=== PATIENT | female | born 1995 | race Hispanic/Latino ===

== ENCOUNTER → 2018-11-17 | Emergency (ER) | payer SELFPAY | LOC: BURERS 23:37 | DX: R11.2 Nausea with vomiting, unspecified (principal) | CPT/HCPCS: 99283 ==

== ENCOUNTER 2020-03-31 12:13 | Emergency (ER) | payer OTHER ==
[2020-03-31] MEDS ORDERED: Ketorolac Tromethamine 60 MG/2 ML VIAL ONE (12:43)
== END 2020-03-31 12:59 | disposition home or self-care (01) ==
LOC: BURERS 12:13
DX: G43.909 Migraine, unspecified, not intractable, without status migrainosus (principal)
CPT/HCPCS: 96372; 99283; J1885

== ENCOUNTER 2020-04-01 13:12 | Emergency (ER) | payer OTHER ==
[2020-04-01 13:38] LABS: Bilirubin Negative (Negative); Blood, Urine Negative (Negative); Clarity Clear (Clear); Glucose, Urine (Dipstick) Negative (Negative); Ketone, Urine Negative (Negative); Leukocyte Negative (Negative); Nitrite Negative (Negative); Protein, Urine (Dipstick) Negative (Neg-Trace); Specific Gravity, Urine 1.025 (1.005-1.030); Urobilinogen 0.2 mg/dL (Less than 2); pH, Urine 7.5 (5.0-9.0)
[2020-04-01 14:01] LABS: Pregnancy Test - Urine (BHCG) Negative (Negative); Pregu Control Background? CLEAR/WHITE (CLR/WHITE); Pregu Control Bar Appear? YES (CONTROL BAR); Specific Gravity 1.025 (1.002-1.036)
[2020-04-01] MEDS ORDERED: Dicyclomine 20 MG TAB ONE (14:10)
[2020-04-01] MEDS ORDERED: traMADol HCl 50 MG TAB ONE ×2 (14:10)
--- NOTE | 2020-04-01 15:24 | CT ---
CT ABDOMEN AND PELVIS WITHOUT CONTRAST: Date: 04-01-[address] of the abdomen and pelvis was done for evaluation of left flank pain. Axial slices were acq uired followed by coronal and sagittal reconstructions. FINDINGS: The lung bases are clear. The liver, spleen, pancreas, adrenal glands, kidneys, and abdominal aorta a ppear normal. There is no sign of renal or ureteral calculi or hydronephrosis. A prior cholecystectom y is noted. The bowel shows no distention. There is a moderate amount of fecal material in the colon. No inflamma tory changes are seen around bowel, nor is there any wall thickening. CT of the pelvis shows a rather large right ovarian cyst measuring about 5 x 3 cm. A surgical clip is seen near it. I do not see any left sided pelvic pathology to explain the left sided pain. The patie nt's appendix was visible and appears normal on the right. IMPRESSION: 1. Mild constipation. 2. 5 x 3 cm right ovarian cyst. Due to the size, this may need further follow up. Findings discussed with Dr. Hernandez at 1445 on 04-01-2020. POS: HOME
== END 2020-04-01 15:07 | disposition home or self-care (01) ==
LOC: BURERS 13:12
DX: N83.202 Unspecified ovarian cyst, left side (principal); K59.00 Constipation, unspecified
CPT/HCPCS: 74176; 81003; 81025